=== PATIENT | female | born 1960 | race Caucasian/White ===

== ENCOUNTER 2017-09-18 13:39 | Emergency (ER) | payer OTHER ==
[~2017-09-18] VITALS: Ht 165.1 cm; Wt 74.8 kg
[~2017-09-18 13:39] MED LIST: ABILIFY 2 MG2 M1; ALPRAZOLAM ER2 MG PO; ASPIRIN EC325 M1; AZITHROMYCIN 2250 MG PO; CARVEDILOL3.125 MG; ESTRACE1 MG; IBUPROFEN 800800 M1 PO; LYRICA 75 MG CA75 MG; OMEPRAZOLE40 MG PO; PROZAC 20 MG20 MG; RISPERDAL0.5 MG PO; SIMVASTATIN20 MG; SYMBICORT160 MCG/4.; VENTOLIN HFA 1818 GM; VESICARE10 M1; WELLBUTRIN 100100 MG; ZOLPIDEM TART12.5 M1
[2017-09-18] MEDS ORDERED: EFFEXOR 5050 MG/1 T1 PO (13:59)
[2017-09-18] MEDS ORDERED: VYVANSE10 MG PO (14:00)
[2017-09-18] MEDS ORDERED: FISH OIL 1,001000 M2 PO (14:00)
[2017-09-18] MEDS ORDERED: CARVEDILOL6.25 M1 PO (14:01)
[2017-09-18] MEDS ORDERED: SIMVASTATIN40 MG PO (14:01)
[2017-09-18] MEDS ORDERED: ZINC50 M2 PO (14:01)
[2017-09-18] MEDS ORDERED: VITAMIN C250 MG PO (14:02)
[2017-09-18] MEDS ORDERED: NEPHROCAPS SOFT1 CAP PO (14:02)
[2017-09-18] MEDS ORDERED: IRON325 PO (14:02)
[2017-09-18] MEDS ORDERED: ESTRADIOL 1 MG T1 M1 PO (14:02)
[2017-09-18] MEDS ORDERED: TRIAMCINOLONE A80 G2 TOP (14:04)
[2017-09-18] MEDS ORDERED: CALCIUM 500 +1 EAC5 PO (14:05)
[2017-09-18] MEDS ORDERED: POTASSIUM20 PO (14:05)
[2017-09-18] MEDS ORDERED: TYLENOL EXTRA500 MG PO (14:06)
[2017-09-18] MEDS ORDERED: HYDROXYZINE HCL10 M1 PO (14:08)
[2017-09-18] MEDS ORDERED: CEFDINIR300 MG PO (14:09)
[2017-09-18 14:44] LABS: CALCIUM 8.7 mg/dL (8.5-10.1); CREATININE 0.8 mg/dL (0.6-1.3); POTASSIUM 3.8 mmol/L (3.5-5.1)
[2017-09-18 14:49] LABS: ALBUMIN 2.8 g/dL (3.4-5.0); TOTAL BILIRUBIN 0.2 mg/dL (<0.1-1.0); TOTAL PROTEIN 6.5 g/dL (6.4-8.2)
[2017-09-18 15:41] LABS: URINE BILIRUBIN NEGATIVE (Negative); URINE BLOOD NEGATIVE (Negative); URINE CLARITY CLEAR; URINE COLOR YELLOW; URINE GLUCOSE-RANDOM NEGATIVE (Negative); URINE KETONES NEGATIVE (Negative); URINE LEUKOCYTES-REFLEX NEGATIVE (Negative); URINE NITRITE-REFLEX NEGATIVE (Negative); URINE PROTEIN NEGATIVE (Negative); URINE SPECIFIC GRAVITY <= 1.005 (1.005-1.030); URINE UROBILINOGEN 0.2 E.U./dl (0.2-1.0)
[2017-09-18] MEDS ORDERED: NEURONTIN600 MG PO (15:50)
[2017-09-18 16:02] VITALS: BP 140/66
== END 2017-09-18 16:02 | disposition home or self-care (01) ==
LOC: M.ERS 13:39
PROVIDERS: Nurse Practitioner Family
DX: G89.29 Other chronic pain (principal); J44.9 Chronic obstructive pulmonary disease, unspecified; Z87.891 Personal history of nicotine dependence; Z88.1 Allergy status to other antibiotic agents

== ENCOUNTER 2017-10-04 12:21 | Emergency (ER) | payer OTHER ==
[~2017-10-04] VITALS: Ht 165.1 cm; Wt 72.6 kg
[~2017-10-04 12:21] MED LIST changes: +CALCIUM 500 +1 EAC5 PO; +CARVEDILOL6.25 M1 PO; +CEFDINIR300 MG PO; +EFFEXOR 5050 MG/1 T1 PO; +ESTRADIOL 1 MG T1 M1 PO; +FISH OIL 1,001000 M2 PO; +HYDROXYZINE HCL10 M1 PO; +IRON325 PO; +NEPHROCAPS SOFT1 CAP PO; +NEURONTIN600 MG PO; +POTASSIUM20 PO; +SIMVASTATIN40 MG PO; +TRIAMCINOLONE A80 G2 TOP; +TYLENOL EXTRA500 MG PO; +VITAMIN C250 MG PO; +VYVANSE10 MG PO; +ZINC50 M2 PO
[2017-10-04] MEDS ORDERED: ULTRAM 50MG TAB50 MG PO (12:40)
[2017-10-04] MEDS ORDERED: MEDROLDOSEPACK PO (12:40)
[2017-10-04] MEDS ORDERED: FLEXERIL PO (12:40)
[2017-10-04] MEDS ORDERED: NEURONTIN 300300 M1 PO (12:45)
[2017-10-04 12:49] VITALS: BP 126/69
== END 2017-10-04 12:50 | disposition home or self-care (01) ==
LOC: M.ERS 12:21
DX: S39.012A Strain of muscle, fascia and tendon of lower back, initial encounter (principal); J44.9 Chronic obstructive pulmonary disease, unspecified; F41.9 Anxiety disorder, unspecified; I10 Essential (primary) hypertension; K21.9 Gastro-esophageal reflux disease without esophagitis; G89.29 Other chronic pain; Z87.891 Personal history of nicotine dependence; Z88.2 Allergy status to sulfonamides; X58.XXXA Exposure to other specified factors, initial encounter; Y93.89 Activity, other specified; Y92.89 Other specified places as the place of occurrence of the external cause; Y99.8 Other external cause status

== ENCOUNTER → 2017-12-29 | Outpatient (CLI) | payer OTHER ==
[~2017-12-29] MED LIST changes: +FLEXERIL PO; +MEDROLDOSEPACK PO; +NEURONTIN 300300 M1 PO; +ULTRAM 50MG TAB50 MG PO
== END ==
LOC: M.RAD 16:30
DX: M19.042 Primary osteoarthritis, left hand (principal); M19.041 Primary osteoarthritis, right hand

== ENCOUNTER 2018-05-28 14:06 | Emergency (ER) | payer OTHER ==
[~2018-05-28] VITALS: Ht 165.1 cm; Wt 79.4 kg
[2018-05-28] MEDS ORDERED: CELEBREX 200 M200 M1 PO (14:20)
[2018-05-28] MEDS ORDERED: KEFLEX500 M1 PO (15:03)
[2018-05-28] MEDS ORDERED: IBUPROFEN 600600 M1 PO (15:04)
[2018-05-28 15:31] VITALS: BP 149/68
== END 2018-05-28 15:31 | disposition home or self-care (01) ==
LOC: M.ERS 14:06
DX: L03.115 Cellulitis of right lower limb (principal); J44.9 Chronic obstructive pulmonary disease, unspecified; I10 Essential (primary) hypertension; F41.9 Anxiety disorder, unspecified; K21.9 Gastro-esophageal reflux disease without esophagitis; F90.9 Attention-deficit hyperactivity disorder, unspecified type; M79.7 Fibromyalgia; Z88.2 Allergy status to sulfonamides; Z87.891 Personal history of nicotine dependence

== ENCOUNTER 2018-06-07 18:29 | Emergency (ER) | payer OTHER ==
[~2018-06-07] VITALS: Ht 165.1 cm; Wt 79.4 kg
[~2018-06-07 18:29] MED LIST changes: +CELEBREX 200 M200 M1 PO; +IBUPROFEN 600600 M1 PO; +KEFLEX500 M1 PO
[2018-06-07 19:40] LABS: HEMATOCRIT 37.2 % (37.0-47.0); HEMOGLOBIN 12.2 gm/dL (12.0-15.0); MCH 27.3 pg (26.0-34.0); MCHC 32.8 g/dL (28.0-37.0); MCV 83.3 fL (80.0-100.0); MPV 7.2 fl. (7.2-11.1); NUCLEATED RBCS 0 /100WBC; PLATELET COUNT* 332 thou/uL (150-400); RBC 4.47 mil/uL (4.20-5.00); RDW-CV 15.1 % (10.5-14.5); WBC 5.9 thou/uL (4.0-11.0)
[2018-06-07 19:53] LABS: ALBUMIN 3.2 g/dL (3.4-5.0); CALCIUM 9.2 mg/dL (8.5-10.1); CREATININE 0.8 mg/dL (0.6-1.3); TOTAL BILIRUBIN 0.1 mg/dL (<0.1-1.0); TOTAL PROTEIN 7.2 g/dL (6.4-8.2)
[2018-06-07] MEDS ORDERED: DOXYCYCLINE 10100 MG PO (19:58)
[2018-06-07 20:07] LABS: ABSOLUTE LYMPHOCYTES 0.5 thou/uL (0.8-5.3); ABSOLUTE MONOCYTES 0.3 thou/uL (0.0-1.2); ABSOLUTE NEUTROPHILS 5.1 thou/uL (1.6-8.1)
[2018-06-07 20:08] LABS: PLATELET ESTIMATE ADEQUATE
[2018-06-07 20:24] VITALS: BP 126/67
== END 2018-06-07 20:26 | disposition home or self-care (01) ==
LOC: M.ERS 18:29
PROVIDERS: Nurse Practitioner Family
DX: L03.115 Cellulitis of right lower limb (principal); J44.9 Chronic obstructive pulmonary disease, unspecified; I10 Essential (primary) hypertension; F41.9 Anxiety disorder, unspecified; K21.9 Gastro-esophageal reflux disease without esophagitis; M79.7 Fibromyalgia; G89.29 Other chronic pain; F90.9 Attention-deficit hyperactivity disorder, unspecified type; Z87.891 Personal history of nicotine dependence; Z88.2 Allergy status to sulfonamides

== ENCOUNTER 2019-08-23 21:30 | Emergency (ER) | payer OTHER ==
[~2019-08-23] VITALS: Ht 165.1 cm; Wt 81.2 kg
[~2019-08-23 21:30] MED LIST changes: +DOXYCYCLINE 10100 MG PO
[2019-08-23] MEDS ORDERED: TRAZODONE 150150 M1 PO (21:47)
[2019-08-23] MEDS ORDERED: AMBIEN 10 MG TA10 MG PO (21:48)
[2019-08-23] MEDS ORDERED: ALPRAZOLAM XR3 MG PO (21:48)
[2019-08-23] MEDS ORDERED: CYMBALTA60 MG PO (21:49)
[2019-08-23] MEDS ORDERED: ADDERALL 30 MG30 MG PO (21:49)
[2019-08-23] MEDS ORDERED: NEURONTIN800 MG PO (21:49)
[2019-08-23] MEDS ORDERED: KEFLEX500 M1 PO (22:28)
[2019-08-23 23:08] VITALS: BP 136/69
== END 2019-08-23 23:10 | disposition home or self-care (01) ==
LOC: M.ERS 21:30
DX: T81.49XA Infection following a procedure, other surgical site, initial encounter (principal); L03.113 Cellulitis of right upper limb; J44.9 Chronic obstructive pulmonary disease, unspecified; I10 Essential (primary) hypertension; K21.9 Gastro-esophageal reflux disease without esophagitis; M79.7 Fibromyalgia; G89.29 Other chronic pain; Z87.891 Personal history of nicotine dependence; Z88.2 Allergy status to sulfonamides; Z88.8 Allergy status to other drugs, medicaments and biological substances; Y84.8 Other medical procedures as the cause of abnormal reaction of the patient, or of later complication, without mention of misadventure at the time of the procedure; Y92.89 Other specified places as the place of occurrence of the external cause

== ENCOUNTER → 2019-11-16 | Outpatient (CLI) | payer OTHER ==
[~2019-11-16] MED LIST changes: +ADDERALL 30 MG30 MG PO; +ALPRAZOLAM XR3 MG PO; +AMBIEN 10 MG TA10 MG PO; +CYMBALTA60 MG PO; +NEURONTIN800 MG PO; +TRAZODONE 150150 M1 PO
== END ==
LOC: M.RAD 10:21
PROVIDERS: ATTEND Family Medicine
DX: M19.071 Primary osteoarthritis, right ankle and foot (principal)

== ENCOUNTER 2019-12-26 15:36 | Emergency (ER) | payer OTHER ==
[~2019-12-26] VITALS: Ht 170.2 cm; Wt 78.5 kg
[2019-12-26] MEDS ORDERED: ABILIFY 5 MG TAB5 M1 PO (16:07)
[2019-12-26] MEDS ORDERED: SYMBICORT80 MCG/4.1 INH (16:07)
[2019-12-26] MEDS ORDERED: PROAIR HFA8.5 GM INH (16:07)
[2019-12-26] MEDS ORDERED: DIPHENHIST50 MG PO (16:08)
[2019-12-26 16:18] LABS: INFLUENZA A ANTIGEN Negative (Negative); INFLUENZA B ANTIGEN Negative (Negative)
[2019-12-26] MEDS ORDERED: AZITHROMYCIN 2250 MG PO (17:01)
[2019-12-26] MEDS ORDERED: PREDNISONE 20 M20 M1 PO (17:01)
[2019-12-26 17:18] VITALS: BP 144/70
== END 2019-12-26 17:19 | disposition home or self-care (01) ==
LOC: M.ERS 15:36
PROVIDERS: Family Medicine
DX: U07.1 COVID-19 (principal); J44.9 Chronic obstructive pulmonary disease, unspecified; I10 Essential (primary) hypertension; K21.9 Gastro-esophageal reflux disease without esophagitis; M79.7 Fibromyalgia; G89.29 Other chronic pain; Z88.2 Allergy status to sulfonamides; Z88.8 Allergy status to other drugs, medicaments and biological substances; Z87.891 Personal history of nicotine dependence

== ENCOUNTER 2020-07-28 15:07 | Emergency (ER) | payer OTHER ==
[~2020-07-28] VITALS: Ht 165.1 cm; Wt 80.7 kg
[~2020-07-28 15:07] MED LIST changes: +ABILIFY 5 MG TAB5 M1 PO; +DIPHENHIST50 MG PO; +PREDNISONE 20 M20 M1 PO; +PROAIR HFA8.5 GM INH; +SYMBICORT80 MCG/4.1 INH
[2020-07-28] MEDS ORDERED: DUPIXENT300 MG/2 M SUBQ (15:26)
[2020-07-28] MEDS ORDERED: FLUOXETINE HCL40 MG PO (15:26)
[2020-07-28 16:08] LABS: URINE BILIRUBIN NEGATIVE (Negative); URINE BLOOD NEGATIVE (Negative); URINE CLARITY CLEAR; URINE COLOR YELLOW; URINE GLUCOSE-RANDOM NEGATIVE (Negative); URINE KETONES NEGATIVE (Negative); URINE LEUKOCYTES-REFLEX NEGATIVE (Negative); URINE NITRITE-REFLEX NEGATIVE (Negative); URINE PROTEIN NEGATIVE (Negative); URINE UROBILINOGEN 0.2 E.U./dl (0.2-1.0)
[2020-07-28 16:16] LABS: ABSOLUTE BASOPHILS 0.1 thou/uL (0.0-0.2); ABSOLUTE LYMPHOCYTES 1.2 thou/uL (0.8-5.3); BASOPHILS 1.1 %; EOSINOPHILS 0.4 %; HEMATOCRIT 39.9 % (37.0-47.0); HEMOGLOBIN 13.8 gm/dL (12.0-15.0); LYMPHOCYTES 14.6 %; MCH 29.8 pg (26.0-34.0); MCHC 34.6 g/dL (28.0-37.0); MCV 86.3 fL (80.0-100.0); MONOCYTES 11.5 %; MPV 6.9 fl. (7.2-11.1); NUCLEATED RBCS 0 /100WBC; PLATELET COUNT* 215 thou/uL (150-400); POLYS 72.4 %; RBC 4.62 mil/uL (4.20-5.00); RDW-CV 14.4 % (10.5-14.5); WBC 8.3 thou/uL (4.0-11.0)
[2020-07-28 16:23] LABS: CALCIUM 8.6 mg/dL (8.5-10.1); CREATININE 0.8 mg/dL (0.6-1.3); POTASSIUM 3.8 mmol/L (3.5-5.1)
[2020-07-28 16:28] LABS: ALBUMIN 3.5 g/dL (3.4-5.0); TOTAL BILIRUBIN 0.2 mg/dL (<0.1-1.0); TOTAL PROTEIN 7.1 g/dL (6.4-8.2)
[2020-07-28 17:55] VITALS: BP 138/82
--- NOTE | 2020-07-29 12:10 | EKG ---
[place] [address] ELECTROCARDIOGRAM REPORT Name: CARLOS SERVIN Room: [facility]#: [id number] Admission: 07/28/20 Attend Phys: Discharge: 07/28/20 Date of : 60 Date of Service: 07/28/20 1610 Report #: [id number] THIS REPORT FOR: //name// [facility] ED Test Date: 2020-07-28 Test Time: 16:10:12 Pat Name: CARLOS SERVIN Department: Room: Gender: F [employer] Machine Tender: JOANN : 1960 Requested By: Colette Osman Order Number: [id number] MD: Topher Alvarez Measurements Intervals [place] Rate: 94 P: 28 FL: 131 QRS: -31 QRSD: 87 T: 47 QT: 325 QTc: 407 Interpretive Statements Sinus rhythm Left axis deviation Baseline wander in lead(s) I,II,III,aVL,aVF,V1,V2,V3,V4,V5,V6 Compared to ECG 07/08/2016 14:43:11 Left-axis deviation now present Right ventricular hypertrophy no longer present Electronically Signed On 07-29-2020 12:10:21 CDT by Topher Alvarez [email or web address] <ELECTRONICALLY SIGNED> By: Topher Alvarez MD, [facility] 07/29/20 1210 09 161 Tohper Alvarez MD, [facility] /EPI
== END 2020-07-28 17:58 | disposition home or self-care (01) ==
LOC: M.ERS 15:07
PROVIDERS: Nurse Practitioner Family
DX: R50.9 Fever, unspecified (principal); Z20.822 Contact with and (suspected) exposure to COVID-19; M79.18 Myalgia, other site; J44.9 Chronic obstructive pulmonary disease, unspecified; I10 Essential (primary) hypertension; K21.9 Gastro-esophageal reflux disease without esophagitis; G89.29 Other chronic pain; Z87.891 Personal history of nicotine dependence; Z88.2 Allergy status to sulfonamides; Z88.8 Allergy status to other drugs, medicaments and biological substances; Z79.899 Other long term (current) drug therapy

== ENCOUNTER 2021-01-07 14:18 | Emergency (ER) | payer OTHER ==
[~2021-01-07] VITALS: Ht 165.1 cm; Wt 77.1 kg
[~2021-01-07 14:18] MED LIST changes: +DUPIXENT300 MG/2 M SUBQ; +FLUOXETINE HCL40 MG PO
[2021-01-07] MEDS ORDERED: PREDNISONE50 MG PO (15:53)
[2021-01-07 16:20] VITALS: BP 136/72
== END 2021-01-07 16:21 | disposition home or self-care (01) ==
LOC: M.ERS 14:18
DX: R06.02 Shortness of breath (principal); Z20.822 Contact with and (suspected) exposure to COVID-19; J44.9 Chronic obstructive pulmonary disease, unspecified; F41.9 Anxiety disorder, unspecified; I10 Essential (primary) hypertension; K21.9 Gastro-esophageal reflux disease without esophagitis; F90.9 Attention-deficit hyperactivity disorder, unspecified type; Z79.899 Other long term (current) drug therapy; Z87.891 Personal history of nicotine dependence; Z88.2 Allergy status to sulfonamides